=== PATIENT | male | born 2000 | race African-American/Black ===

== ENCOUNTER 2022-01-29 09:25 | Emergency (ER) | payer MEDICAID ==
[~2022-01-29] VITALS: Ht 198.1 cm; Wt 152.8 kg
[~2022-01-29 09:25] MED LIST: CIPRODEX OTIC7.5 ML AS; DOXYCYCLINE HY100 MG PO; METHYLPHENIDATE20 M1 PO
[2022-01-29] MEDS ORDERED: TRAZODONE HCL100 MG PO (12:34)
--- NOTE | 2022-01-29 20:24 | EKG ---
[facility] [address] [place], [place] [address] Signed Normal sinus rhythm Minimal voltage criteria for LVH, may be normal variant ( R in aVL ) Borderline ECG No previous ECGs available Confirmed by EDMUND SNYDER MD ([id number]) on 01/29/2022 8:24:16 PM Electronically Signed By: EDMUND SNYDER MD 01/29/222023 PATIENT NAME: CORY SOSA Luis F Electrocardiogram DATE OF : 89 PHYSICIAN: EDMUND SNYDER MD REPORT #: [id number] REPORT IS CONFIDENTIAL AND NOT TO BE RELEASED WITHOUT AUTHORIZATION
== END 2022-01-29 12:25 | disposition home or self-care (01) ==
LOC: ED 09:25
DX: R56.9 Unspecified convulsions (principal); Z82.49 Family history of ischemic heart disease and other diseases of the circulatory system; Z88.1 Allergy status to other antibiotic agents; Z88.2 Allergy status to sulfonamides; Z91.030 Bee allergy status
CPT/HCPCS: 36415; 70450; 71045; 80053; 84484; 85025; 93005; 93010; G0480; J7030

== ENCOUNTER 2022-05-20 08:49 | Emergency (ER) | payer MEDICAID ==
[~2022-05-20] VITALS: Ht 198.1 cm; Wt 152.4 kg
[~2022-05-20 08:49] MED LIST changes: +TRAZODONE HCL100 MG PO
== END 2022-05-20 09:14 ==
LOC: ED 08:49
DX: I46.9 Cardiac arrest, cause unspecified (principal); R56.9 Unspecified convulsions; Z91.030 Bee allergy status; Z88.1 Allergy status to other antibiotic agents; Z88.2 Allergy status to sulfonamides; Z79.899 Other long term (current) drug therapy
CPT/HCPCS: 31500; 92950; 99285; J0171